=== PATIENT | male | born 1960 | race Caucasian/White ===

== ENCOUNTER 2018-12-05 07:55 | Emergency (ER) | payer OTHER ==
[~2018-12-05] VITALS: Ht 180.3 cm; Wt 129.3 kg
[2018-12-05] MEDS ORDERED: NORVASC2.5 M1 PO (08:20)
[2018-12-05] MEDS ORDERED: SYNTHROID50 MCG PO (08:20)
[2018-12-05] MEDS ORDERED: ATORVASTATIN CA10 MG PO (08:21)
[2018-12-05] MEDS ORDERED: BENICAR20 MG PO (08:21)
[2018-12-05] MEDS ORDERED: METFORMIN HCL500 MG PO (08:22)
== END 2018-12-05 12:50 | disposition home or self-care (01) ==
LOC: ER 07:55
DX: B34.9 Viral infection, unspecified (principal)